=== PATIENT | male | born 1940 | race Hispanic/Latino ===

== ENCOUNTER 2018-03-23 12:01 | Outpatient (CLI) | payer MEDICARE, MEDICAID ==
[2018-03-23] MEDS ORDERED: Gadobenate Dimeglumine 529 MG/1 ML (20ML VIAL) ONE (15:12)
--- NOTE | 2018-03-23 17:09 | MRI ---
BRAIN MRI WITHOUT AND WITHOUT CONTRAST 03/23/18 COMPARISON: None. HISTORY: Memory loss for three months. TECHNIQUE: Multiplanar and multisequence MR imaging of the brain is obtained with and without contrast. FINDINGS: The diffusion weighted imaging demonstrates no evidence for acute infarction. Axial gradient echo imaging demonstrates no evidence for intracranial hemorrhage. 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 There is a moderate degree of diffuse cerebral volume loss with associated prominence of the CSF cont aining spaces. The axial T2 and FLAIR imaging demonstrates no evidence for significant small vessel disease. The imaged paranasal sinuses and mastoid air cells are well aerated. Arterial flow voids at axial lev el of skull base appear grossly unremarkable on the T2 weighted imaging. Postcontrast imaging is slightly limited by patient head motion artifact. There is no abnormal enhanc ement identified within the brain parenchyma. IMPRESSION: No acute findings. POS: [facility]
--- NOTE | 2018-03-24 08:31 | PET ---
PET CT OF THE BRAIN: Date: 03/23/18 HISTORY: 77-year-old male with other frontotemporal dementia. RADIOPHARMACEUTICAL: 10 mCi F18-FDG injected in the left antecubital fossa. Imaging performed after an uptake interval of 53 minutes. COMPARISON: None. CORRELATION: MRI of the brain from the same date. FINDINGS: There is bilateral hypometabolism noted in the temporal lobes. The remainder of the brain demonstrate s normal FDG localization. IMPRESSION: Bilateral temporal lobe hypometabolism. POS: [facility]
== END 2018-03-23 12:02 | disposition home or self-care (01) ==
LOC: PET 12:01
PROVIDERS: ATTEND Psychiatry & Neurology Neurology
DX: G31.09 Other frontotemporal neurocognitive disorder (principal); R63.8 Other symptoms and signs concerning food and fluid intake
CPT/HCPCS: 70553; 78608; A9552; A9579